=== PATIENT | female | born 1985 | race Caucasian/White ===

== ENCOUNTER 2016-05-16 22:17 | Emergency (ER) | payer BC ==
[~2016-05-16] VITALS: Ht 167.6 cm; Wt 106.8 kg
--- OUTSIDE RECORDS SUMMARY | 2016-05-16 22:21 | XMS REPORT | Continuity of Care Document ---
Author Author [facility] Address Unknown Phone Unavailable Allergies Active Description Code Type Severity Reaction Onset Reported/Identified Relationship to Patient Clinical Status Yes No Known Drug Allergies [id number] Drug Allergy Unknown N/ A 07/03/2014 Medications Problems Date Dx Coded Attending Type Code Diagnosis Diagnosed By 07/06/2014 Tanya Marie APRN Ot 530.81 07/06/2014 Tanya Marie APRN Ot 599.0 09/11/2015 Tanya Marie APRN Ot 530.81 ESOPHAGEAL REFLUX 09/11/2015 Tanya Marie APRN Ot 599.0 URIN TRACT INFECTION NOS Procedures Results Encounters ACCT No. Visit Date/Time Discharge Status Pt. Type Provider Facility Loc./Unit Complaint [id number] 07/03/2014 17:08:00 2014 23:59:59 CLS Outpatient Tanya Marie [facility]
--- OUTSIDE RECORDS SUMMARY | 2016-05-16 22:25 | XMS REPORT | Continuity of Care Document ---
Author Author [facility] Address Unknown Phone Unavailable Allergies Active Description Code Type Severity Reaction Onset Reported/Identified Relationship to Patient Clinical Status Yes No Known Drug Allergies [id number] Drug Allergy Unknown N/ A 07/03/2014 Medications Problems Date Dx Coded Attending Type Code Diagnosis Diagnosed By 07/06/2014 Tanya Marie APRN Ot 530.81 07/06/2014 Tanya aMrie APRN Ot 599.0 09/11/2015 Tanya Marie APRN Ot 530.81 ESOPHAGEAL REFLUX 09/11/2015 Tanya Marie APRN Ot 599.0 URIN TRACT INFECTION NOS Procedures Results Encounters ACCT No. Visit Date/Time Discharge Status Pt. Type Provider Facility Loc./Unit Complaint [id number] 07/03/2014 17:08:00 2014 23:59:59 CLS Outpatient Tanya Marie [facility]
[2016-05-16 23:43] LABS: BASOPHILS % (AUTO) 0 % (0-2); EOSINOPHILS # (AUTO) 0.3 10^3uL; EOSINOPHILS % (AUTO) 3 % (0-4); LYMPHOCYTES # (AUTO) 2.3 X10^3; MEAN CORPUSCULAR HEMOGLOBIN 28.5 PG (26.0-34.0); MEAN CORPUSCULAR HGB CONC 33.2 g/dL (31.0-37.0); MEAN CORPUSCULAR VOLUME 86 FL (80-100); MEAN PLATELET VOLUME 10.5 FL (6.0-9.5); MONOCYTES # (AUTO) 0.8 X10^3; MONOCYTES % (AUTO) 8 % (3-11); NEUTROPHILS # (AUTO) 6.7 X10^3; NEUTROPHILS % (AUTO) 66 % (51-67); PLATELET COUNT 290 10^3uL (150-450); WHITE BLOOD COUNT 10.17 10^3uL (4.0-11.0)
[2016-05-17 00:03] LABS: CALCULATED IONIZED CALCIUM 4.2 mg/dL (3.8-4.6); TOTAL PROTEIN 6.9 g/dL (6.4-8.5)
[2016-05-17 00:28] LABS: BILIRUBIN,URINE Negative (Negative); CLARITY,URINE Clear; COLOR,URINE Yellow; GLUCOSE, URINE (UA) Negative (Negative); LEUKOCYTE ESTERASE ,URINE Negative (Negative); UROBILINOGEN,URINE 0.2 mg/dL (0.2-1.0)
[2016-05-17 00:32] LABS: HCG,QUALITATIVE URINE Negative (Negative); URINE CENTRIFUGED VOLUME 12 mL
[2016-05-17] MEDS ORDERED: DOXY-231 PO (01:27)
[2016-05-17] MEDS ORDERED: DOXYCYCLINE 100 MG (VIBRAMYCIN) TABLET PO ONE (01:30)
[2016-05-17 01:44] VITALS: BP 120/67
== END 2016-05-17 01:18 | disposition home or self-care (01) ==
LOC: ED 22:21
DX: S40.262A Insect bite (nonvenomous) of left shoulder, initial encounter (principal); R21 Rash and other nonspecific skin eruption; W57.XXXA Bitten or stung by nonvenomous insect and other nonvenomous arthropods, initial encounter
CPT/HCPCS: 36415; 80053; 81003; 81015; 81025; 83690; 85025; 86140; 86757; 99282; 99283